=== PATIENT | female | born 1945 | race Caucasian/White ===

== ENCOUNTER 2018-02-27 16:23 | Emergency (ER) | payer MEDICARE, OTHER ==
[2018-02-27 16:40] VITALS: BP 183/96; PULSE 79; RESP 16; TEMP 98.7; O2SAT 96
[2018-02-27] MEDS ORDERED: [UNRECOGNIZED DRUG - REMARK] (17:28)
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
[2018-02-27] MEDS ORDERED: METHOCARBAMOL 500 MG TAB PO ONE (18:15)
[2018-02-27] MEDS ORDERED: ROBA500T PO (18:36)
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
== END 2018-02-27 19:10 | disposition home or self-care (01) ==
LOC: NEPK 16:23
DX: S39.012A Strain of muscle, fascia and tendon of lower back, initial encounter (principal); S29.012A Strain of muscle and tendon of back wall of thorax, initial encounter; I10 Essential (primary) hypertension; K21.9 Gastro-esophageal reflux disease without esophagitis; V49.88XA Car occupant (driver) (passenger) injured in other specified transport accidents, initial encounter; Y92.410 Unspecified street and highway as the place of occurrence of the external cause
CPT/HCPCS: 72100; 99283